=== PATIENT | female | born 1950 | race Caucasian/White ===

== ENCOUNTER 2017-05-10 16:01 | Emergency (ER) | payer BC ==
[2017-05-10 16:05] VITALS: BP 118/72; PULSE 82; RESP 18; TEMP 97.1
--- NOTE | 2017-05-10 16:06 | ED ---
Eye Problem HPI - General Stated complaint: Eye Redness Time Seen by Provider: 05/10/17 16:04 Source: patient, RN notes reviewed Mode of arrival: ambulatory Limitations: no limitations - History of Present Illness Initial comments: This a 66-year-old female presents emergency Department chief complaint eye redness. Patient states she felt like she had something in her right eye and she rubbed at it. She states that she looked no nausea or joint redness a small bubble GERD. Patient denies any blurred vision. Patient denies any traumatic injury. Patient states is no severe pain. She denies any photophobia. Patient does state that she does wear glasses. Patient try to get in to the eye doctor but they were all closed. - Related Data Allergies Allergy/AdvReac Type Severity Reaction Status Date / Time clarithromycin [From Biaxin] Allergy Rash/Hives Verified 05/10/17 16:06 hydroxychloroquine Allergy Rash/Hives Verified 05/10/17 16:06 [From Plaquenil] nabumetone [From Relafen] Allergy Rash/Hives Verified 05/10/17 16:06 Review of Systems ROS Statement: Those systems with pertinent positive or pertinent negative responses have been documented in the HPI. ROS Other: All systems not noted in ROS Statement are negative. General Exam General appearance: alert, in no apparent distress Head exam: Present: atraumatic, normocephalic, normal inspection Eye exam: Present: PERRL, EOMI, conjunctival injection (Right eye with chemosis) . Absent: normal appearance, scleral icterus, periorbital swelling ENT exam: Present: normal exam, normal oropharynx, mucous membranes moist, TM's normal bilaterally, normal external ear exam Neck exam: Present: normal inspection, full ROM. Absent: tenderness, meningismus, lymphadenopathy Respiratory exam: Present: normal lung sounds bilaterally. Absent: respiratory distress, wheezes, rales, rhonchi, stridor Cardiovascular Exam: Present: regular rate, normal rhythm, normal heart sounds. Absent: systolic murmur, diastolic murmur, rubs, gallop, clicks Skin exam: Present: warm, dry, intact, normal color. Absent: rash Course Vital Signs 05/10/17 16:02 Temperature 97.1 F L Pulse Rate 82 Respiratory 18 Rate Blood Pressure 118/72 O2 Sat by Pulse 99 Oximetry Medical Decision Making - Medical Decision Making 66-year-old male present for right eye irritation. Patient has appears ALLERGIC conjunctivitis with chemosis. Patient was started on Tobrex and Zaditor. Return parameters were discussed. Patient follow-up with plate cutter/Rx that she has. Return parameters were discussed. Disposition Clinical Impression: Conjunctivitis, Chemosis of conjunctiva Disposition: HOME SELF-CARE Condition: Stable Instructions: Conjunctivitis (ED) Additional Instructions: Please return to the Emergency Department if symptoms worsen or any other concerns. Use Tobrex eyedrops 1 drop 4 times a day for 5 days, use his zaditor drops twice daily Referrals: Nonstaff,Physician [Primary Care Provider] - 1-2 days Time of Disposition: 16:14
[2017-05-10] MEDS ORDERED: KETOTIFEN 0.025% OPHTH DROPS 5 ML BTL RIGHT EYE STA (16:12)
[2017-05-10] MEDS ORDERED: TOBRAMYCIN 0.3% OPHTH DROPS 5 ML BTL RIGHT EYE STA (16:12)
== END 2017-05-10 16:31 | disposition home or self-care (01) ==
LOC: EC 16:01
DX: H10.9 Unspecified conjunctivitis (principal); H11.421 Conjunctival edema, right eye; Z88.1 Allergy status to other antibiotic agents; Z88.8 Allergy status to other drugs, medicaments and biological substances
CPT/HCPCS: 99282; 99283

== ENCOUNTER 2022-08-21 09:38 | Day surgery (SDC) | payer MEDICARE ==
[~2022-08-21 09:38] MED LIST: LACTATED RINGERS 1,000 ML IV SCH; LIDOCAINE 1% (10MG/ML) FOR IV START INTRADERMA PRN
[2022-08-21 10:44] VITALS: RESP 16; TEMP 98.9
[2022-08-21] MEDS ORDERED: PROPOFOL 10 MG/ML 20 ML VIAL IV ONE (11:02)
[2022-08-21 11:38] VITALS: BP 115/74; PULSE 70
--- NOTE | 2022-08-21 11:38 | P.PCN ---
Date of Procedure: 08/21/22 Procedure(s) Performed: BRIEF HISTORY: Patient is a 72-year-old pleasant female scheduled for an elective colonoscopy as a part of screening for colon cancer. PROCEDURE PERFORMED: Colonoscopy. PREOPERATIVE DIAGNOSIS: Screening for colon cancer. IV sedation per Anesthesia. PROCEDURE: After informed consent was obtained, the patient, was brought into the endoscopy unit. IV sedation was administered by Anesthesia under continuous monitoring. Digital rectal examination was normal. Initially the Olympus CF-160 flexible video colonoscope was then inserted in the rectum, gradually advanced into the cecum without any difficulty. Careful examination was performed as the scope was gradually being withdrawn. Ileocecal valve and the appendiceal orifice were visualized and appeared normal. Prep was excellent. Mucosa of the cecum, ascending colon, transverse colon, descending colon, sigmoid colon, and rectum appeared normal. At her sigmoidal diverticulosis. Retroflexion was performed in the rectum and no lesions were seen. The patient tolerated the procedure well. IMPRESSION: Scattered sigmoid diverticulosis No evidence of colorectal neoplasia RECOMMENDATIONS: Findings of this examination were discussed with the patient as well as a family. She was advised to have a repeat screening colonoscopy in 10 years..
== END 2022-08-21 11:53 | disposition home or self-care (01) ==
LOC: ORWHC2ENDO 09:38
PROVIDERS: ATTEND Internal Medicine Gastroenterology
DX: Z12.11 Encounter for screening for malignant neoplasm of colon (principal); K57.30 Diverticulosis of large intestine without perforation or abscess without bleeding; E78.5 Hyperlipidemia, unspecified; E07.9 Disorder of thyroid, unspecified; Z79.899 Other long term (current) drug therapy
CPT/HCPCS: J2704; G0121

== ENCOUNTER → 2024-03-11 | Outpatient (CLI) | payer MEDICARE ==
--- NOTE | 2024-04-09 15:43 | MR ---
Patient: Silva Harmon L Ordering Physician: Unknown, Unknown ID: [id number] Phone, Pager: Phone: N/A Pager: N/A : [phone] Age/Gender: 73Y, F Primary Location: N/A Procedure: MR lumbar spine wo [place] dy Date: 03/11/2024 8:14:51 PM EXAMINATION TYPE: MR lumbar spine wo con DATE OF EXAM: 03/25/2024 2:38 PM CLINICAL INDICATION: Low back pain COMPARISON: 02/19/2024 TECHNIQUE: Multi planar, multi sequence imaging was performed utilizing: T1-weighted, T2-weighted, a nd turbo inversion recovery imaging of the lumbar spine. IV Contrast: (None if empty) FINDINGS: Alignment: The lumbar vertebral bodies have preserved heights with grade 1 anterolisthesis of L4 on L 5 and L5 on S1. Mild scoliosis changes apex left L2-L3. Cord: The conus medullaris and the distal spinal cord appear unremarkable with regards to their signa l intensity and morphology. Bones/Discs: Mild degeneration changes throughout the spine with osteophyte formation and facet joint arthropathy. Intervertebral disc signal is maintained. No abnormal inversion recovery signal to sugg est bony edema. Pseudoarthrosis of the spinous processes. T12-L1: No evidence of significant spinal canal stenosis or neural foraminal stenosis. L1-L2: No evidence of significant spinal canal stenosis or neural foraminal stenosis. L2-L3: No evidence of significant spinal canal stenosis. Facet joint arthropathy mild bilateral neura l foraminal stenosis. L3-L4: No evidence of significant spinal canal stenosis. Facet joint arthropathy mild bilateral neura l foraminal stenosis. L4-L5: Disc uncovering from grade 1 anterolisthesis and facet joint arthropathy with mild spinal jenny l stenosis and mild to moderate bilateral neural foraminal stenosis. L5-S1: Disc uncovering from grade 1 anterolisthesis and facet joint arthropathy with mild spinal jenny l stenosis and moderate left and [id number] right neural foraminal stenosis. No significant spinal canal or neural foraminal stenosis in the remainder of the visualized levels. Other findings: Peripelvic renal cysts left greater than right. IMPRESSION: 1. No definitive evidence of disc herniation or significant spinal canal stenosis. 2. 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 Neural forami nal stenosis worse at L5-S1 on the left 3. Grade 1 anterolisthesis of L4 on L5 and L5 on S1. 4. 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
== END | disposition home or self-care (01) ==
LOC: RADMRIMAIN 20:00
PROVIDERS: ATTEND Orthopaedic Surgery
DX: M51.36 Other intervertebral disc degeneration, lumbar region (principal); M99.73 Connective tissue and disc stenosis of intervertebral foramina of lumbar region; M43.17 Spondylolisthesis, lumbosacral region; M96.0 Pseudarthrosis after fusion or arthrodesis
CPT/HCPCS: 72148